=== PATIENT | male | born 1990 | race African-American/Black ===

== ENCOUNTER 2024-06-17 08:43 | Emergency (ER) | payer OTHER ==
[2024-06-17 08:56] VITALS: BMI 23.0
[2024-06-17] MEDS ORDERED: ACETAMINOPHEN INJECTION 100 ML ONE (09:29)
[2024-06-17] MEDS ORDERED: ONDANSETRON 4 MG/2 ML VIAL ONE (09:29)
[2024-06-17] MEDS ORDERED: FAMOTIDINE 20 MG/50 ML IVPB 20 MG/50 ML MG IVPB ONE (09:29)
[2024-06-17] MEDS: ACETAMINOPHEN 1000 MG/100 ML BAG IVPB ONE (09:42)
[2024-06-17] MEDS: ONDANSETRON 4 MG/2 ML VIAL IVPUSH ONE (09:42)
[2024-06-17] MEDS: FAMOTIDINE 20 MG/50 ML IVPB 20 MG/50 ML MG IVPB ONE (09:42)
[2024-06-17] MEDS: SODIUM CHLORIDE 0.9% 500 ML INFUS.BAG IV ONE ×2 (09:42→10:59)
[2024-06-17 09:47] LABS: ABSOLUTE IMMATURE GRANULOCYTES 0.06 x10^3/uL (0.0-0.031); BASOPHILS # 0.08 x10^3/uL (0.01-0.08); EOSINOPHIL % 0.1 % (0.8-7.0); EOSINOPHILS # 0.01 x10^3/uL (0.04-0.54); HEMATOCRIT 55.6 % (40.1-51.0); HEMOGLOBIN 18.7 g/dL (13.7-17.5); MCHC 33.6 g/dl (32.3-36.5); MEAN CELL VOLUME 88.3 fl (79.0-92.2); MEAN PLT VOLUME 9.8 fl (9.4-12.4); MONOCYTE % 6.2 % (5.3-12.2); PLATELET COUNT 302 x10^3/uL (163-337); RDW 13.2 % (12.0-15.6)
[2024-06-17 10:07] LABS: THROAT:GRP A STREP NOT DETECTED (NOTDETECTED)
[2024-06-17 10:10] LABS: POTASSIUM 3.9 mmol/L (3.5-5.1)
[2024-06-17 10:12] LABS: BLOOD UREA NITROGEN 10.7 mg/dL (7-18); CALCIUM 10.5 mg/dL (8.5-10.1)
[2024-06-17 10:13] LABS: ALBUMIN 4.6 g/dl (3.4-5.0)
[2024-06-17 10:15] LABS: CREATININE 1.1 mg/dL (0.55-1.3)
[2024-06-17 10:27] LABS: EPI CELLS 6 /uL (0-25.1); HYALINE CASTS 0 /uL (0-3.1); PH,URINE >= 9.0 (5.0-8.0); URINE APPEARANCE CLEAR; URINE BACTERIA 4 /uL (0-1359); URINE BILIRUBIN NEGATIVE (NEGATIVE); URINE COLOR YELLOW; URINE GLUCOSE (UA) NEGATIVE (NEGATIVE); URINE KETONE TRACE (NEGATIVE); URINE LEUK ESTERASE NEGATIVE (NEGATIVE); URINE NITRITE NEGATIVE (NEGATIVE); URINE PROTEIN 2+ (NEGATIVE); URINE RBC 13 /uL (0-23.9); URINE WBC 5 /uL (0-25.8)
[2024-06-17 10:30] LABS: BILIRUBIN,TOTAL 1.2 mg/dL (0.2-1); TOT PROT 8.6 g/dl (6.4-8.2)
[2024-06-17 12:44] VITALS: RESP 16; TEMP 98.5
[2024-06-17 13:54] VITALS: BP 120/78; PULSE 65
== END 2024-06-17 13:54 | disposition home or self-care (01) ==
LOC: JER 08:43
PROC: 3E033GC Introduction of Other Therapeutic Substance into Peripheral Vein, Percutaneous Approach (ICD-10-PCS; principal; 2024-06-17)
PROC: 3E033NZ Introduction of Analgesics, Hypnotics, Sedatives into Peripheral Vein, Percutaneous Approach (ICD-10-PCS; 2024-06-17)
PROC: 3E033GC Introduction of Other Therapeutic Substance into Peripheral Vein, Percutaneous Approach (ICD-10-PCS; 2024-06-17)
DX: R11.2 Nausea with vomiting, unspecified (principal); R10.84 Generalized abdominal pain; J02.9 Acute pharyngitis, unspecified
CPT/HCPCS: 0241U-QW; 36415; 74177-TC; 80053; 81003; 83690; 85025; 87086; 87651; 99285-25; J0131